=== PATIENT | female | born 2000 | race Caucasian/White ===

== ENCOUNTER 2019-02-03 18:28 | Emergency (ER) | payer BC ==
[~2019-02-03] VITALS: Ht 172.7 cm; Wt 64.5 kg
[2019-02-03 19:00] VITALS: Ht 172.7 cm; Wt 64.5 kg
[2019-02-03 21:36] VITALS: BP 124/73
== END 2019-02-03 21:37 | disposition home or self-care (01) ==
LOC: D.ER 18:28 → EDBD 18:28 → D.ER 21:37
DX: F41.9 Anxiety disorder, unspecified (principal); F32.9 Major depressive disorder, single episode, unspecified